=== PATIENT | female | born 1980 | race African-American/Black ===

== ENCOUNTER → 2016-09-23 | Outpatient (CLI) | payer MEDICAID ==
[2016-09-23 14:23] LABS: ABSOLUTE LYMPHOCYTES (AUTO) 1.6 10^3/uL (0.5-4.7); ABSOLUTE MONOCYTES (AUTO) 0.2 10^3/uL (0.1-1.4); ABSOLUTE NEUT (AUTO) 2.5 10^3/uL (1.7-8.2); EOSINOPHILS % (AUTO) 0.8 % (0-6); HEMATOCRIT 37.3 % (36.0-47.0); HEMOGLOBIN 12.7 g/dL (12.0-15.5); HGB HCT DIFFERENCE 0.8; LYMPHOCYTES % (AUTO) 36.1 % (13-45); MEAN CORPUSCULAR HGB CONC 33.9 g/dL (32.0-36.0); MEAN CORPUSCULAR VOLUME 83 fl (80-97); MONOCYTES % (AUTO) 5.1 % (3-13); RED BLOOD COUNT 4.53 10^6/uL (3.72-5.28); RED CELL DISTRIBUTION WIDTH 13.7 % (11.5-14.0); WHITE BLOOD COUNT 4.3 10^3/uL (4.0-10.5)
[2016-09-23 14:39] LABS: ALANINE AMINOTRANSFERASE 28 U/L (9-52); ALBUMIN 4.2 g/dL (3.5-5.0); ALKALINE PHOSPHATASE 66 U/L (38-126); ANION GAP 12 (5-19); ASPARTATE AMINO TRANSFERASE 28 U/L (14-36); BILIRUBIN,DIRECT 0.3 mg/dL (0.0-0.4); BILIRUBIN,TOTAL 0.4 mg/dL (0.2-1.3); BLOOD UREA NITROGEN 14 mg/dL (7-20); CALCIUM 9.6 mg/dL (8.4-10.2); CARBON DIOXIDE 29 mmol/L (22-30); CHLORIDE 100 mmol/L (98-107); CREATININE RESULT 0.88 mg/dL (0.52-1.25); GLUCOSE 95 mg/dL (75-110); LIPASE 261.9 U/L (23-300); POTASSIUM 4.5 mmol/L (3.6-5.0); SODIUM 141.2 mmol/L (137-145); TOTAL PROTEIN 7.6 g/dL (6.3-8.2)
[2016-09-23 14:41] LABS: CHLAM PCR NOT DETECTED (NOT DETECT)
== END ==
LOC: LAB 12:46
PROVIDERS: ATTEND Nurse Practitioner Acute Care
DX: R10.84 Generalized abdominal pain (principal)
CPT/HCPCS: 36415; 80053; 83690; 85025; 87210; 87491; 87591

== ENCOUNTER 2016-10-03 21:52 | Emergency (ER) | payer MEDICAID ==
[2016-10-04 00:37] LABS: APPEARANCE,URINE CLEAR; BILIRUBIN,URINE NEGATIVE (NEGATIVE); GLUCOSE, URINE NEGATIVE (NEGATIVE); KETONES,URINE NEGATIVE (NEGATIVE); LEUKOCYTE ESTERASE,URINE NEGATIVE (NEGATIVE); NITRITE,URINE NEGATIVE (NEGATIVE); PROTEIN,URINE NEGATIVE (NEGATIVE); UROBILINOGEN,URINE NEGATIVE mg/dL (<2.0)
[2016-10-04 06:13] VITALS: BP 167/108
--- NOTE | 2016-10-04 06:15 | ER Document Report ---
ED GI/ - General Chief Complaint: Abdominal Pain Stated Complaint: ABDOMINAL PAIN/BACK PAIN Mode of Arrival: Ambulatory Information source: Patient Notes: 36 y/o F presents to ED c/o lower pelvic/suprapubic pain. Describes pain as sharp pressure that radiates to rectum area. States pain began after intercourse tonight. Reports had similar episodes approximately 10 days ago and was seen by pcp with no significant findings. Denies fever, n/v, vaginal bleeding or discharge, dysuria, or blood in stool. TRAVEL OUTSIDE OF THE [place] IN LAST 30 DAYS: No - HPI Patient complains to provider of: Pelvic pain, Vaginal pain Onset: This evening Timing/Duration: Gradual, Persistent Quality of pain: Pressure, Sharp Severity at maximum: Moderate Severity in ED: Almost gone Pain Level: 2 Location: Pelvis, Vaginal, Rectal Vaginal bleeding (Compared to normal period): None Sexual history: Active, Condoms. denies: New partner, Rectal penetration, STD exposure Similar symptoms previously: Yes Recently seen / treated by doctor: Yes - Related Data Allergies/Adverse Reactions: No Known Allergies Allergy (Unverified 10/03/16 23:30) Past Medical History - General Information source: Patient - Social History Smoking Status: Never Smoker Chew tobacco use (# tins/day): No Frequency of alcohol use: None Drug Abuse: None Lives with: Family Family History: Reviewed & Not Pertinent Patient has suicidal ideation: No Patient has homicidal ideation: No - Medical History Medical History: Negative Renal/ Medical History: Denies: Hx Peritoneal Dialysis Past Surgical History: Reports: Hx Section - Immunizations Immunizations up to date: Yes Hx Diphtheria, Pertussis, Tetanus Vaccination: Yes Review of Systems - Review of Systems Constitutional: No symptoms reported EENT: No symptoms reported Cardiovascular: No symptoms reported Respiratory: No symptoms reported Gastrointestinal: No symptoms reported Genitourinary: No symptoms reported Female Genitourinary: See HPI Musculoskeletal: No symptoms reported Skin: No symptoms reported Hematologic/Lymphatic: No symptoms reported Neurological/Psychological: No symptoms reported -: Yes All other systems reviewed and negative Physical Exam - Vital signs Vitals: Temp Pulse Resp BP Pulse Ox 98.2 F 90 20 179/100 H 99 10/03/16 23:25 10/03/16 23:25 10/03/16 23:25 10/03/16 23:25 10/03/16 23:25 - General General appearance: Appears well, Alert In distress: None - HEENT Head: Normocephalic, Atraumatic Eyes: Normal Pupils: PERRL - Respiratory Respiratory status: No respiratory distress Chest status: Nontender Breath sounds: Normal Chest palpation: Normal - Cardiovascular Rhythm: Regular Heart sounds: Normal auscultation Murmur: No Pulses: Normal: Radial Normal capillary refill: Yes - Abdominal Inspection: Normal Distension: No distension Bowel sounds: Normal Tenderness: Nontender Organomegaly: No organomegaly - Genitourinary Notes: pt declined pelvic and rectal exam - Back Back: Normal, Nontender - Extremities General upper extremity: Normal inspection, Nontender, Normal color, Normal ROM , Normal strength, Normal temperature General lower extremity: Normal inspection, Nontender, Normal color, Normal ROM , Normal strength, Normal temperature, Normal weight bearing - Neurological Neuro grossly intact: Yes Cognition: Normal Orientation: AAOx4 Fernanda Coma Scale Eye Opening: Spontaneous [place] Coma Scale Verbal: Oriented [place] Coma Scale Motor: Obeys Commands Fernanda Coma Scale Total: 15 Speech: Normal Motor strength normal: LUE, RUE, LLE, RLE - Skin Skin Temperature: Warm Skin Moisture: Dry Skin Color: Normal Course - Re-evaluation Re-evalutation: 10/04/16 06:00 Pt hemodynamically stable, in no distress, afebrile, non-toxic, and appears well hydrated. Reviewed patient's labs including pelvic panel from 10 days ago which were unremarkable. HCG negative and UA unremarkable today. Pt declined pelvic and rectal exam today as she states had one during evaluation last week. Today's US show uterine fibroid and small right ovarian cyst. Pt presentation and findings not suggestive of emergent etiology at this time. Pt appears stable for discharge and agrees with home care, follow-up with [facility]-[employer]dn[employer] Artificer, and ED return precautions. - Vital Signs Vital signs: Temp Pulse Resp BP Pulse Ox 98.2 F 70 17 167/108 H 98 10/04/16 02:44 10/04/16 02:44 10/04/16 02:44 10/04/16 04:02 10/04/16 04:02 - Diagnostic Test Radiology reviewed: Image reviewed, Reports reviewed Discharge - Discharge Clinical Impression: Uterine fibroid Qualifiers: Uterine leiomyoma location: intramural Qualified Code(s): D25.1 - Intramural leiomyoma of uterus Ovarian cyst Qualifiers: Laterality: right Qualified Code(s): N83.201 - Unspecified ovarian cyst, right side Condition: Stable Disposition: HOME, SELF-CARE Instructions: Ovarian Cyst ([facility]), Pelvic Pain ([facility]), Anti-Inflammatory Medication ([facility]) Additional Instructions: Your ultrasound today showed Uterine fibroid and a right ovarian cyst. Follow-up with your primary care provider and Gynecolgy as discussed. Return to the Emergency Department for any worsening symptoms or concerns. Prescriptions: Naproxen [Naprosyn 375 Mg Tablet] 375 mg PO BIDP PRN #10 tablet PRN Reason: Forms: Elevated Blood Pressure Referrals: [facility] [Provider Group] - Follow up tomorrow
== END 2016-10-04 06:22 | disposition home or self-care (01) ==
LOC: ER 21:52
DX: D25.1 Intramural leiomyoma of uterus (principal); N83.201 Unspecified ovarian cyst, right side; R10.2 Pelvic and perineal pain
CPT/HCPCS: 76830; 81001; 81025; 87086; 87088; 87186; 93976; 99284

== ENCOUNTER 2017-03-31 19:30 | Emergency (ER) | payer MEDICARE, MEDICAID ==
[2017-03-31 20:16] VITALS: BP 171/101
== END 2017-03-31 23:45 | disposition left against medical advice (07) ==
LOC: ER 19:30
DX: Z53.9 Procedure and treatment not carried out, unspecified reason (principal); L02.415 Cutaneous abscess of right lower limb

== ENCOUNTER 2019-11-09 19:22 | Observation (INO) | payer MEDICARE, MEDICAID ==
--- NOTE | 2019-11-09 19:53 | ER Document Report ---
ED Medical Screen (RME) - General Chief Complaint: Blood Pressure Problem Stated Complaint: BLOOD PRESSURE ISSUES Time Seen by Provider: 11/09/19 19:52 Mode of Arrival: Ambulatory Information source: Patient Notes: 39-year-old female presented to ED for complaint of elevated blood pressure. She states she went to [facility] for reason starting her high blood pressure medicines and they told her she had to come to the emergency room because she needed a complete assessment and work-up because she has not taken her blood pressure medicines in 8 months. She states she cannot remember what she took for her blood pressure. Her blood pressure when she came to the emergency room was 181/100. She states she has no other past medical history does not smoke drink or use any drugs. She is alert oriented respirations regular nonlabored speaking in full sentences. I have greeted and performed a rapid initial assessment of this patient. A comprehensive ED assessment and evaluation of the patient, analysis of test results and completion of medical decision making process will be conducted by an additional ED providers. TRAVEL OUTSIDE OF THE [place] IN LAST 30 DAYS: No - Related Data Allergies/Adverse Reactions: No Known Allergies Allergy (Unverified 10/03/16 23:30) Past Medical History - Social History Chew tobacco use (# tins/day): No Frequency of alcohol use: None Drug Abuse: None Renal/ Medical History: Denies: Hx Peritoneal Dialysis Past Surgical History: Reports: Hx Section - Immunizations Immunizations up to date: Yes Hx Diphtheria, Pertussis, Tetanus Vaccination: Yes Physical Exam - Vital signs Vitals: Temp Pulse Resp BP Pulse Ox 98.6 F 82 16 181/100 H 97 11/09/19 19:26 11/09/19 19:26 11/09/19 19:26 11/09/19 19:26 11/09/19 19:26 Course - Vital Signs Vital signs: Temp Pulse Resp BP Pulse Ox 98.6 F 82 16 181/100 H 97 11/09/19 19:42 11/09/19 19:26 11/09/19 19:26 11/09/19 19:26 11/09/19 19:26
--- NOTE | 2019-11-09 20:50 | EKG REPORT ---
SEVERITY:- ABNORMAL ECG - SINUS RHYTHM FIRST DEGREE AV BLOCK : Confirmed by: Anup Mota MD 09-Nov-2019 20:49:25
[2019-11-09 20:56] LABS: ABSOLUTE BASOPHILS # (AUTO) 0.1 10^3/uL (0.0-0.2); ABSOLUTE EOSINOPHILS # (AUTO) 0.1 10^3/uL (0.0-0.6); ABSOLUTE LYMPHOCYTES (AUTO) 2.2 10^3/uL (0.5-4.7); ABSOLUTE MONOCYTES (AUTO) 0.3 10^3/uL (0.1-1.4); ABSOLUTE NEUT (AUTO) 2.8 10^3/uL (1.7-8.2); BASOPHILS % (AUTO) 2.5 % (0-2); EOSINOPHILS % (AUTO) 1.4 % (0-6); HEMOGLOBIN 13.4 g/dL (12.0-15.5); LYMPHOCYTES % (AUTO) 40.2 % (13-45); MEAN CORPUSCULAR HEMOGLOBIN 28.2 pg (27.0-33.4); MEAN CORPUSCULAR HGB CONC 35.2 g/dL (32.0-36.0); MEAN CORPUSCULAR VOLUME 80 fl (80-97); MONOCYTES % (AUTO) 5.1 % (3-13); PLATELET COUNT 318 10^3/uL (150-450); RED BLOOD COUNT 4.75 10^6/uL (3.72-5.28); RED CELL DISTRIBUTION WIDTH 14.6 % (11.5-14.0); SEGMENTED NEUTROPHILS % (AUTO) 50.8 % (42-78); TOTAL CELLS COUNTED % (AUTO) 100 %; WHITE BLOOD COUNT 5.5 10^3/uL (4.0-10.5)
[2019-11-09 20:59] LABS: APPEARANCE,URINE CLEAR; BILIRUBIN,URINE NEGATIVE (NEGATIVE); COLOR,URINE YELLOW; GLUCOSE, URINE NEGATIVE (NEGATIVE); KETONES,URINE NEGATIVE (NEGATIVE); PROTEIN,URINE 30 mg/dL (NEGATIVE); URINE SPECIFIC GRAVITY 1.015
--- NOTE | 2019-11-09 21:00 | ER Document Report ---
ED General - General Chief Complaint: Blood Pressure Problem Stated Complaint: BLOOD PRESSURE ISSUES Time Seen by Provider: 11/09/19 19:52 Primary Care Provider: YARIEL TURCIOS NP [Primary Care Provider] - Follow up as needed Mode of Arrival: Ambulatory Information source: Patient Notes: malissa chong 39-year-old female presented to ED for complaint of elevated blood pressure. She states she went to [facility] for reason starting her high blood pressure medicines and they told her she had to come to the emergency room because she needed a complete assessment and work-up because she has not taken her blood pressure medicines in 8 months. She states she cannot remember what she took for her blood pressure. Her blood pressure when she came to the emergency room was 181/100. She states she has no other past medical history does not smoke drink or use any drugs. She is alert oriented respirations regular nonlabored speaking in full sentences. my notes 39-year-old black female arrives with chief complaint over the last 4 days of inability to walk her usual mile walk. Indeed she can only walk around 50 feet before becoming short of breath now with dizziness and lightheadedness. She reports she has been off of her blood pressure medicine for least 8 months now and her personal doctor "advised her to come to the hospital because she may have COVID-19." Patient denies any fever chills cough hemoptysis dysuria conjunctivitis skin rash or edema of the legs. Patient does report she has been clammy. Especially when she is attempting to walk greater than 50 feet. TRAVEL OUTSIDE OF THE [place] IN LAST 30 DAYS: No - HPI Onset: This morning - Related Data Allergies/Adverse Reactions: No Known Allergies Allergy (Unverified 10/03/16 23:30) Past Medical History - General Information source: Patient - Social History Smoking Status: Never Smoker Cigarette use (# per day): No Chew tobacco use (# tins/day): No Smoking Education Provided: No Frequency of alcohol use: None Drug Abuse: None Family History: Reviewed & Not Pertinent Patient has homicidal ideation: No - Past Medical History Cardiac Medical History: Reports: Hx Hypertension Renal/ Medical History: Denies: Hx Peritoneal Dialysis Past Surgical History: Reports: Hx Section - Immunizations Immunizations up to date: Yes Hx Diphtheria, Pertussis, Tetanus Vaccination: Yes Review of Systems - Review of Systems Constitutional: See HPI, Malaise, Weakness EENT: See HPI, Other - clammy Cardiovascular: See HPI, Chest pain, Orthopnea, Dizziness, Lightheaded Respiratory: See HPI, Short of breath, Other - OJEDA Gastrointestinal: No symptoms reported Genitourinary: No symptoms reported Female Genitourinary: No symptoms reported Musculoskeletal: No symptoms reported Skin: No symptoms reported Hematologic/Lymphatic: No symptoms reported Neurological/Psychological: No symptoms reported Physical Exam - Vital signs Vitals: Temp Pulse Resp BP Pulse Ox 98.6 F 82 16 181/100 H 97 11/09/19 19:26 11/09/19 19:26 11/09/19 19:26 11/09/19 19:26 11/09/19 19:26 Interpretation: Hypertensive - General General appearance: Alert In distress: None - HEENT Head: Normocephalic, Atraumatic Eyes: Normal Pupils: PERRL Ears: Normal External canal: Normal Sinus: Normal Nasal: Normal Mouth/Lips: Normal Mucous membranes: Normal Pharynx: Normal Neck: Normal - Respiratory Respiratory status: No respiratory distress Chest status: Nontender Breath sounds: Normal Chest palpation: Normal - Cardiovascular Rhythm: Regular Heart sounds: Normal auscultation Murmur: No - Abdominal Inspection: Normal Distension: No distension Bowel sounds: Normal Tenderness: Nontender Organomegaly: No organomegaly - Genitourinary Bimanuel exam: Other - deferred - Back Back: Normal - Extremities General upper extremity: Normal inspection, Nontender, Normal color, Normal ROM, Normal temperature General lower extremity: Normal inspection, Nontender, Normal color, Normal ROM, Normal temperature, Normal weight bearing. No: Christopher's sign - Neurological Neuro grossly intact: Yes Cognition: Normal Orientation: AAOx4 Fernanda Coma Scale Eye Opening: Spontaneous [place] Coma Scale Verbal: Oriented Fernanda Coma Scale Motor: Obeys Commands [place] Coma Scale Total: 15 Speech: Normal Motor strength normal: LUE, RUE, LLE, RLE Sensory: Normal - Psychological Associated symptoms: Anxious - Skin Skin Temperature: Warm Skin Moisture: Dry Course - Vital Signs Vital signs: Temp Pulse Resp BP Pulse Ox 98.6 F 82 20 167/109 H 99 11/09/19 19:42 11/09/19 19:26 11/10/19 00:33 11/10/19 00:33 11/10/19 00:33 - Laboratory Result Diagrams: 11/09/19 20:36 11/09/19 20:36 Laboratory results interpreted by me: 11/09/19 11/09/19 11/09/19 20:30 20:36 20:36 RDW 14.6 H Baso % (Auto) 2.5 H AST 41 H Total Protein 8.6 H Urine Protein 30 H Urine Urobilinogen 4.0 H - Diagnostic Test Radiology reviewed: Reports reviewed - EKG Interpretation by Me EKG shows normal: Sinus rhythm Rate: Normal Rhythm: NSR Critical Care Note - Critical Care Note Total time excluding time spent on procedures (mins): 90 Comments: I discussed this case at 2314 with Stefano Jennings plate colorer and he advised labetalol 10 and hydralazine if that does not lower her blood pressure. By 2315 I also discussed this case with Dr. Lopez who would evaluate this patient tomorrow morning if the patient is admitted. I spoke with Kae at 2320 and advised that patient will receive labetalol IV and hold nicardipine drip for now. I spoke with Stefano at 00 37 with a blood pressure of 167/109 and he advises hydralazine with nitro drip. Patient continues to have substernal chest pain 5- 6/10. Please note by 0 140 patient had a 144/82 blood pressure on 5 mics of nitroglycerin drip but continued to have chest pain. I again spoke with Stefano about this patient at 0140. I discussed this case with Dr. Mike Sood and he advises telemetry bed Discharge - Discharge Clinical Impression: Chest pain at rest, Chest pain due to CAD Hypertension Qualifiers: Hypertension type: unspecified Qualified Code(s): I10 - Essential (primary) h ypertension Condition: Good Disposition: ADMITTED INPATIENT Admitting Provider: stefano jennings Unit Admitted: Telemetry Forms: Elevated Blood Pressure Referrals: YAREIL TURCIOS NP [Primary Care Provider] - Follow up as needed
[2019-11-09 21:14] LABS: ALBUMIN 4.7 g/dL (3.5-5.0); ALKALINE PHOSPHATASE 72 U/L (38-126); ANION GAP 8 (5-19); ASPARTATE AMINO TRANSFERASE 41 U/L (14-36); BILIRUBIN,DIRECT 0.1 mg/dL (0.0-0.4); BILIRUBIN,TOTAL 0.5 mg/dL (0.2-1.3); BLOOD UREA NITROGEN 12 mg/dL (7-20); CALCIUM 9.3 mg/dL (8.4-10.2); CARBON DIOXIDE 30 mmol/L (22-30); CHLORIDE 101 mmol/L (98-107); GLUCOSE 94 mg/dL (75-110); TOTAL PROTEIN 8.6 g/dL (6.3-8.2)
[2019-11-09] MEDS ORDERED: DILTIAZEM HCL INJ 25 MG/5 ML VIAL IV ONE (21:52)
[2019-11-09] MEDS ORDERED: NICARDIPINE HCL RTU, ISO-OS 20 MG/200 ML RTUINJ IV PRN (23:06)
[2019-11-09] MEDS ORDERED: LABETALOL HCL INJ 20 MG/4 ML DISP.SYRIN IV ONE (23:14)
--- NOTE | 2019-11-09 23:25 | RADIOLOGY REPORT (SQ) ---
EXAM DESCRIPTION: XR CHEST 1 VIEW COMPLETED DATE/TME: 11/09/2019 21:04 CLINICAL HISTORY: 39 years, Female, sob COMPARISON: None. NUMBER OF VIEWS: TECHNIQUE: LIMITATIONS: None. FINDINGS: No evidence of pulmonary infiltrate or pleural effusion. The heart and mediastinum are unremarkable. Pulmonary vascularity appears normal. IMPRESSION: Normal chest x-ray. copyright 2010 [employer]- All Rights Reserved
[2019-11-10] MEDS ORDERED: HYDRALAZINE HCL INJ/PF 20 MG/1 ML SDV IV ONE (00:43)
[2019-11-10] MEDS ORDERED: NITROGLYCERIN/D5W 50 MG/250 ML RTUINJ IV PRN (00:44)
[2019-11-10] MEDS ORDERED: ASPIRIN 81 MG TABLET, CHEWABLE PO ONE (01:09)
[2019-11-10] MEDS ORDERED: METOCLOPRAMIDE HCL ORAL SOLN 10 MG/10 ML UDCUP PO ONE (01:44)
[2019-11-10] MEDS ORDERED: MAG HYDROX/AL HYDROX/SIMETH SUSP 30 ML UDCUP PO ONE (01:44)
[2019-11-10] MEDS ORDERED: LIDOCAINE 2% VISCOUS SOLN 15 ML UDCUP PO ONE (01:44)
[2019-11-10] MEDS ORDERED: HYDRALAZINE HCL INJ/PF 20 MG/1 ML SDV IV PRN (01:54)
[2019-11-10] MEDS ORDERED: ACETAMINOPHEN 325 MG TABLET PO PRN (01:55)
[2019-11-10] MEDS ORDERED: NITROGLYCERIN 0.4 MG/TAB 25 TAB/BOTTLE SL PRN (01:55)
[2019-11-10] MEDS: FAMOTIDINE 20 MG TABLET PO SCH ×4 (02:50→18:07)
[2019-11-10] MEDS ORDERED: AMLODIPINE BESYLATE 10 MG TABLET PO ONE ×2 (03:00→14:00)
[2019-11-10 03:27] LABS: URINE AMPHETAMINES SCREEN NEGATIVE; URINE BARBITURATES SCREEN NEGATIVE; URINE BENZODIAZEPINES SCREEN NEGATIVE; URINE COCAINE SCREEN NEGATIVE; URINE MARIJUANA (THC) SCREEN NEGATIVE; URINE METHADONE SCREEN NEGATIVE; URINE PHENCYCLIDINE SCREEN NEGATIVE
[2019-11-10] MEDS ORDERED: LORAZEPAM INJ 2 MG/1 ML VIAL IV ONE (05:00)
--- NOTE | 2019-11-10 05:55 | PDOC H&P ---
History of Present Illness Admission Date/PCP: 11/10/19 02:06 YARIEL TURCIOS NP Patient complains of: Chest pain shortness of breath History of Present Illness: AJ JOSEPH is a 39 year old female with a past medical history of hypertension and morbid obesity who presents with 4 days of intermittent shortness of breath with exertion and some dull 2 out of 5 nonradiating, intermittent chest pain relieved with rest. In the emergency room she presents with systolic blood pressure in the 190s but an otherwise unremarkable work-up including normal troponin, TSH, BNP, EKG and chest x-ray. She is referred to the hospitalist for admission. On exam she is anxious unable to identify stressor. Cardene and IV nitro are discontinued and she receives Ativan 1 mg x 1 resulting in a systolic blood pressure of 130 and resolution of symptoms. She admits to abrupt discontinuation of antihypertensive medication 6 months ago. Past Medical History Cardiac Medical History: Reports: Hypertension Psychiatric Medical History: Denies: Depression Past Surgical History Past Surgical History: Reports: Section Social History Information Source: Patient Lives with: Spouse/Significant other Smoking Status: Unknown if Ever Smoked Electronic Cigarette use?: No Frequency of Alcohol Use: Rare Drugs: None Hx Prescription Drug Abuse: No - Advance Directive Resuscitation Status: Full Code Family History Family History: Malignancy - Father unknown origin Parental Family History Reviewed: Yes Children Family History Reviewed: Yes Sibling(s) Family History Reviewed.: Yes Medication/Allergy Home Medications: Naproxen [Naprosyn 375 Mg Tablet] 375 mg PO BIDP PRN #10 tablet 10/04/16 Allergies/Adverse Reactions: No Known Allergies Allergy (Unverified 10/03/16 23:30) Review of Systems Constitutional: ABSENT: chills, fever(s), headache(s), weight gain, weight loss Eyes: ABSENT: visual disturbances Ears: ABSENT: hearing changes Cardiovascular: ABSENT: chest pain, dyspnea on exertion, edema, orthropnea, palpitations Respiratory: ABSENT: cough, hemoptysis Gastrointestinal: ABSENT: abdominal pain, constipation, diarrhea, hematemesis, hematochezia, nausea, vomiting Genitourinary: ABSENT: dysuria, hematuria Musculoskeletal: ABSENT: joint swelling Integumentary: ABSENT: rash, wounds Neurological: ABSENT: abnormal gait, abnormal speech, confusion, dizziness, focal weakness, syncope Psychiatric: ABSENT: anxiety, depression, homidical ideation, suicidal ideation Endocrine: ABSENT: cold intolerance, heat intolerance, polydipsia, polyuria Hematologic/Lymphatic: ABSENT: easy bleeding, easy bruising Physical Exam Vital Signs: Temp Pulse Resp BP Pulse Ox 98.1 F 89 17 170/79 H 99 11/10/19 03:09 11/10/19 03:28 11/10/19 03:09 11/10/19 04:00 11/10/19 03:09 Intake & Output 11/08/19 11/09/19 11/10/19 11:59 11:59 11:59 Intake Total 1 Balance 1 Weight 114 kg General appearance: PRESENT: cooperative, morbidly obese, well-developed, well- nourished Head exam: PRESENT: atraumatic, normocephalic Eye exam: PRESENT: conjunctiva pink, EOMI, PERRLA. ABSENT: scleral icterus Ear exam: PRESENT: normal external ear exam Mouth exam: PRESENT: moist, tongue midline Neck exam: ABSENT: carotid bruit, JVD, lymphadenopathy, thyromegaly Respiratory exam: PRESENT: clear to auscultation aneudy. ABSENT: rales, rhonchi, wheezes Cardiovascular exam: PRESENT: RRR. ABSENT: diastolic murmur, rubs, systolic murmur Pulses: PRESENT: normal dorsalis pedis pul Vascular exam: PRESENT: normal capillary refill GI/Abdominal exam: PRESENT: normal bowel sounds, soft. ABSENT: distended, guarding, mass, organolmegaly, rebound, tenderness Rectal exam: PRESENT: deferred Extremities exam: PRESENT: full ROM. ABSENT: calf tenderness, clubbing, pedal edema Neurological exam: PRESENT: alert, awake, oriented to person, oriented to place, oriented to time, oriented to situation, CN II-XII grossly intact. ABSENT: motor sensory deficit Psychiatric exam: PRESENT: appropriate affect, normal mood. ABSENT: homicidal ideation, suicidal ideation Skin exam: PRESENT: dry, intact, warm. ABSENT: cyanosis, rash Results Laboratory Results: 11/09/19 20:36 11/09/19 20:36 11/09/19 11/09/19 11/09/19 20:30 20:36 20:36 WBC 5.5 RBC 4.75 Hgb 13.4 Hct 38.0 MCV 80 MCH 28.2 MCHC 35.2 RDW 14.6 H Plt Count 318 Seg Neutrophils % 50.8 Sodium 138.8 Potassium 4.0 Chloride 101 Carbon Dioxide 30 Anion Gap 8 BUN 12 Creatinine 0.95 Est GFR ( Amer) > 60 Glucose 94 Calcium 9.3 Total Bilirubin 0.5 AST 41 H Alkaline Phosphatase 72 Total Protein 8.6 H Albumin 4.7 TSH Serum HCG, Qual Urine Color YELLOW Urine Appearance CLEAR Urine pH 6.0 Ur Specific [place] 1.015 Urine Protein 30 H Urine Glucose (UA) NEGATIVE Urine Ketones NEGATIVE Urine Blood NEGATIVE 11/09/19 11/09/19 20:36 20:36 WBC RBC Hgb Hct MCV MCH MCHC RDW Plt Count Seg Neutrophils % Sodium Potassium Chloride Carbon Dioxide Anion Gap BUN Creatinine Est GFR ( Amer) Glucose Calcium Total Bilirubin AST Alkaline Phosphatase Total Protein Albumin TSH 3.68 Serum HCG, Qual NEGATIVE Urine Color Urine Appearance Urine pH Ur Specific [place] Urine Protein Urine Glucose (UA) Urine Ketones Urine Blood 11/09/19 11/09/19 11/10/19 20:36 20:36 02:48 Troponin I < 0.012 < 0.012 NT-Pro-B Natriuret Pep 58 Impressions: Chest X-Ray 11/09/19 21:04 IMPRESSION: Normal chest x-ray. copyright 2010 [employer]- All Rights Reserved Assessment and Plan - Diagnosis (1) Hypertensive urgency Is this a current diagnosis for this admission?: Yes Plan: Multifactorial secondary to underlying essential hypertension and uncontrolled anxiety, nicardipine, nitroglycerin discontinued in the emergency department followed by a return of the systolic blood pressure in the 190s followed by 1 mg of Ativan IV and a systolic blood pressure of 130 and resolution of symptoms. Will continue Norvasc 10 mg daily suggest trial trazodone 25 nightly (2) Morbid obesity Is this a current diagnosis for this admission?: Yes Plan: Morbid obesity will evaluate for metabolic cause with evaluation of thyroid function and dietitian consultation (3) Anxiety Is this a current diagnosis for this admission?: Yes Plan: Follow-up TSH, trial trazodone (4) Chest pain at rest Is this a current diagnosis for this admission?: Yes Plan: Recent unremarkable stress test per patient 1 year ago. Chief complaint of [facility] [facility] pain likely secondary to uncontrolled hypertension, consider outpatient stress test. - Time Time Spent with patient: 15-24 minutes - Inpatient Certification Medical Necessity: Need Close Monitoring Due to Risk of Patient Decompensation
[2019-11-10] MEDS: ASPIRIN 81 MG TABLET, ENT COATED PO SCH ×2 (09:39→11:35)
[2019-11-10] MEDS: AMLODIPINE BESYLATE 10 MG TABLET PO SCH ×2 (09:39→11:36)
[2019-11-10] MEDS: HYDROCHLOROTHIAZIDE 25 MG TABLET PO SCH (13:26)
--- NOTE | 2019-11-10 14:44 | PDOC PROGRESS REPORT ---
Subjective Progress Note for:: 11/10/19 Subjective:: Patient was seen on afternoon rounds. She is walking up to the recliner, comfortably, on room air. She reports a headache today but otherwise has no complaints. She states that she has had no further episodes of chest discomfort. She specifically denies palpitations, dyspnea, orthopnea, and peripheral edema. She has many questions regarding why she is continuing to be offered oral antihypertensives now that her blood pressure has "improved." Discussed in detail with patient. Reason For Visit: HTN URGENCY CP Physical Exam Vital Signs: Temp Pulse Resp BP Pulse Ox 98.1 F 96 18 148/87 H 97 11/10/19 10:48 11/10/19 10:48 11/10/19 10:48 11/10/19 10:48 11/10/19 10:48 Intake & Output 11/09/19 11/10/19 11/11/19 06:59 06:59 06:59 Intake Total 1 0 Balance 1 0 Weight 114 kg General appearance: PRESENT: no acute distress, obese, well-developed, well- nourished Head exam: PRESENT: atraumatic, normocephalic Eye exam: PRESENT: conjunctiva pink, EOMI, PERRLA. ABSENT: scleral icterus Mouth exam: PRESENT: moist, tongue midline Respiratory exam: PRESENT: clear to auscultation aneudy. ABSENT: rales, rhonchi, wheezes Cardiovascular exam: PRESENT: RRR, tachycardia - HR <115 at rest. ABSENT: diastolic murmur, rubs, systolic murmur Pulses: PRESENT: normal dorsalis pedis pul Vascular exam: PRESENT: normal capillary refill GI/Abdominal exam: PRESENT: normal bowel sounds, soft. ABSENT: distended, guarding, mass, organolmegaly, rebound, tenderness Rectal exam: PRESENT: deferred Extremities exam: PRESENT: full ROM. ABSENT: calf tenderness, clubbing, pedal edema Musculoskeletal exam: PRESENT: ambulatory Neurological exam: PRESENT: alert, awake, oriented to person, oriented to place, oriented to time, oriented to situation, CN II-XII grossly intact. ABSENT: motor sensory deficit Psychiatric exam: PRESENT: anxious, normal mood. ABSENT: homicidal ideation, suicidal ideation Skin exam: PRESENT: dry, intact, warm. ABSENT: cyanosis, rash Results Laboratory Results: 11/09/19 20:36 11/09/19 20:36 11/09/19 11/09/19 11/09/19 20:30 20:36 20:36 WBC 5.5 RBC 4.75 Hgb 13.4 Hct 38.0 MCV 80 MCH 28.2 MCHC 35.2 RDW 14.6 H Plt Count 318 Seg Neutrophils % 50.8 Sodium 138.8 Potassium 4.0 Chloride 101 Carbon Dioxide 30 Anion Gap 8 BUN 12 Creatinine 0.95 Est GFR ( Amer) > 60 Glucose 94 Calcium 9.3 Total Bilirubin 0.5 AST 41 H Alkaline Phosphatase 72 Total Protein 8.6 H Albumin 4.7 TSH Serum HCG, Qual Urine Color YELLOW Urine Appearance CLEAR Urine pH 6.0 Ur Specific [place] 1.015 Urine Protein 30 H Urine Glucose (UA) NEGATIVE Urine Ketones NEGATIVE Urine Blood NEGATIVE 11/09/19 11/09/19 20:36 20:36 WBC RBC Hgb Hct MCV MCH MCHC RDW Plt Count Seg Neutrophils % Sodium Potassium Chloride Carbon Dioxide Anion Gap BUN Creatinine Est GFR ( Amer) Glucose Calcium Total Bilirubin AST Alkaline Phosphatase Total Protein Albumin TSH 3.68 Serum HCG, Qual NEGATIVE Urine Color Urine Appearance Urine pH Ur Specific [place] Urine Protein Urine Glucose (UA) Urine Ketones Urine Blood 11/09/19 11/09/19 11/10/19 20:36 20:36 02:48 Troponin I < 0.012 < 0.012 NT-Pro-B Natriuret Pep 58 11/10/19 08:20 Troponin I < 0.012 NT-Pro-B Natriuret Pep Impressions: Chest X-Ray 11/09/19 21:04 IMPRESSION: Normal chest x-ray. copyright 2010 [email or web address] All Rights Reserved Assessment and Plan - Diagnosis (1) Hypertensive urgency Is this a current diagnosis for this admission?: Yes Plan: Improved; though did require prn IV hydralazine Multifactorial secondary to underlying essential hypertension and uncontrolled anxiety, Will continue Norvasc 10 mg daily Will resume HCTZ; patient reports previously did well with this medication. Suggest trial trazodone 25 nightly and BuSpar twice daily. Cardiac diet. (2) Anxiety Is this a current diagnosis for this admission?: Yes Plan: TSH nml UDS negative Remains anxious today; highly resistant to new medications. Would avoid benzos. Consider betablocker for dual effect (blood pressure and anxiety/agitation) Will offer BuSpar though doubt patient will be willing to attempt. (3) Chest pain at rest Is this a current diagnosis for this admission?: Yes Plan: Resolved. Recent unremarkable stress test per patient 1 year ago. Chief complaint of chest pain likely secondary to uncontrolled hypertension, consider outpatient stress test. Troponins negative x 3 Sinus tach by telemetry; no concerning findings. (4) Morbid obesity Is this a current diagnosis for this admission?: Yes Plan: BMI 39.4 TSH is nml Dietary discretion and lifestyle modification are encouraged. - Time Time Spent with patient: 15-24 minutes Medications reviewed and adjusted accordingly: Yes Anticipated discharge: Home Within: within 24 hours
[2019-11-10] MEDS: BUSPIRONE HCL 10 MG TABLET PO SCH (21:42)
[2019-11-10] MEDS ORDERED: TRAZODONE HCL 50 MG TABLET PO SCH (22:00)
[2019-11-10] MEDS ORDERED: ATORVASTATIN CALCIUM 40 MG TABLET PO SCH (22:00)
[2019-11-11 08:42] VITALS: BP 170/79
[2019-11-11] MEDS: AMLODIPINE BESYLATE 10 MG TABLET PO SCH (09:22)
[2019-11-11] MEDS: HYDROCHLOROTHIAZIDE 25 MG TABLET PO SCH (09:22)
[2019-11-11] MEDS: FAMOTIDINE 20 MG TABLET PO SCH (09:22)
[2019-11-11] MEDS: BUSPIRONE HCL 10 MG TABLET PO SCH (09:22)
[2019-11-11] MEDS: ASPIRIN 81 MG TABLET, ENT COATED PO SCH (09:22)
[2019-11-11] MEDS ORDERED: METOPROLOL SUCCINATE 25 MG TAB.SR.24H PO SCH (10:00)
--- NOTE | 2019-11-11 12:31 | PDOC DISCHARGE SUMMARY ---
Impression - Admit/DC Date/PCP Admission Date/Primary Care Provider: 11/10/19 02:06 YARIEL TURCIOS NP Discharge Date: 11/11/19 - Discharge Diagnosis (1) Hypertensive urgency Is this a current diagnosis for this admission?: Yes (2) Anxiety Is this a current diagnosis for this admission?: Yes (3) Chest pain at rest Is this a current diagnosis for this admission?: Yes (4) Morbid obesity Is this a current diagnosis for this admission?: Yes - Additional Information Resuscitation Status: Full Code Discharge Diet: Cardiac Discharge Activity: Activity As Tolerated Referrals: YARIEL TURCIOS NP [Primary Care Provider] - 11/15/19 3:15 pm Prescriptions: Buspirone HCl [Buspar 10 mg Tablet] 10 mg PO Q12 #60 tablet Trazodone HCl [Desyrel 50 mg Tablet] 25 mg PO QHS #30 tablet Hydrochlorothiazide [Hydrodiuril 25 mg Tablet] 25 mg PO DAILY #30 tablet Amlodipine Besylate [Norvasc 10 mg Tablet] 10 mg PO DAILY #30 tablet Metoprolol Succinate [Toprol Xl 25 mg Tab.sr] 25 mg PO QHS #30 tab.sr.24h Home Medications: Acetaminophen [Tylenol 325 mg Tablet] 650 mg PO Q4HP PRN tablet 11/11/19 Amlodipine Besylate [Norvasc 10 mg Tablet] 10 mg PO DAILY #30 tablet 11/11/19 Aspirin [Ecotrin 81 mg EC Tablet] 81 mg PO DAILY tabec 11/11/19 Buspirone HCl [Buspar 10 mg Tablet] 10 mg PO Q12 #60 tablet 11/11/19 Hydrochlorothiazide [Hydrodiuril 25 mg Tablet] 25 mg PO DAILY #30 tablet 11/11/19 Metoprolol Succinate [Toprol Xl 25 mg Tab.sr] 25 mg PO QHS #30 tab.sr.24h 11/11/19 Trazodone HCl [Desyrel 50 mg Tablet] 25 mg PO QHS #30 tablet 11/11/19 History of Present Illiness History of Present Illness: Per H&P by Dr. Sood: AJ JOSEPH is a 39 year old female with a past medical history of hypertension and morbid obesity who presents with 4 days of intermittent shortness of breath with exertion and some dull 2 out of 5 nonradiating, intermittent chest pain relieved with rest. In the emergency room she presents with systolic blood pressure in the 190s but an otherwise unremarkable work-up including normal troponin, TSH, BNP, EKG and chest x-ray. She is referred to the hospitalist for admission. On exam she is anxious unable to identify stressor. Cardene and IV nitro are discontinued and she receives Ativan 1 mg x 1 resulting in a systolic blood pressure of 130 and resolution of symptoms. She admits to abrupt discontinuation of antihypertensive medication 6 months ago. Hospital Course Hospital Course: (1) Hypertensive urgency Significantly improved. Multifactorial secondary to underlying essential hypertension and uncontrolled anxiety, Have resumed her previously prescribed doses of Norvasc 10 mg daily and HCTZ 25 mg daily. Started on Toprol XL 25 mg qHS Cardiac diet. (2) Anxiety TSH nml UDS negative Remains anxious today; highly resistant to new medications. Have started betablocker for dual effect (blood pressure and anxiety/agitation) D/c on BuSpar and Trazadone. Discussed medications in detail with patient. (3) Chest pain at rest Resolved. Recent unremarkable stress test per patient 1 year ago. Chief complaint of chest pain likely secondary to uncontrolled hypertension, consider outpatient stress test. Troponins negative x 3 (4) Morbid obesity BMI 39.4 TSH is nml Dietary discretion and lifestyle modification are encouraged. Physical Exam Vital Signs: Temp Pulse Resp BP Pulse Ox 98.1 F 88 18 170/79 H 98 11/11/19 08:41 11/11/19 08:41 11/11/19 08:41 11/11/19 08:41 11/11/19 08:41 Intake & Output 11/10/19 11/11/19 11/12/19 06:59 06:59 06:59 Intake Total 1 350 Balance 1 350 Weight 114 kg 97.3 kg General appearance: PRESENT: no acute distress, cooperative, obese, well- developed, well-nourished Head exam: PRESENT: atraumatic, normocephalic Eye exam: PRESENT: conjunctiva pink, EOMI, PERRLA. ABSENT: scleral icterus Mouth exam: PRESENT: moist, tongue midline Respiratory exam: PRESENT: clear to auscultation aneudy. ABSENT: rales, rhonchi, wheezes Cardiovascular exam: PRESENT: RRR. ABSENT: diastolic murmur, rubs, systolic murmur Pulses: PRESENT: normal dorsalis pedis pul Vascular exam: PRESENT: normal capillary refill GI/Abdominal exam: PRESENT: normal bowel sounds, soft. ABSENT: distended, guarding, mass, organolmegaly, rebound, tenderness Rectal exam: PRESENT: deferred Extremities exam: PRESENT: full ROM. ABSENT: calf tenderness, clubbing, pedal edema Musculoskeletal exam: PRESENT: ambulatory Neurological exam: PRESENT: alert, awake, oriented to person, oriented to place, oriented to time, oriented to situation, CN II-XII grossly intact. ABSENT: motor sensory deficit Psychiatric exam: PRESENT: appropriate affect, normal mood. ABSENT: homicidal ideation, suicidal ideation Skin exam: PRESENT: dry, intact, warm. ABSENT: cyanosis, rash Results Laboratory Results: WBC 5.5 10^3/uL (4.0-10.5) 11/09/19 20:36 RBC 4.75 10^6/uL (3.72-5.28) 11/09/19 20:36 Hgb 13.4 g/dL (12.0-15.5) 11/09/19 20:36 Hct 38.0 % (36.0-47.0) 11/09/19 20:36 MCV 80 fl (80-97) 11/09/19 20:36 MCH 28.2 pg (27.0-33.4) 11/09/19 20:36 MCHC 35.2 g/dL (32.0-36.0) 11/09/19 20:36 RDW 14.6 % (11.5-14.0) H 11/09/19 20:36 Plt Count 318 10^3/uL (150-450) 11/09/19 20:36 Lymph % (Auto) 40.2 % (13-45) 11/09/19 20:36 [place]ance % (Auto) 5.1 % (3-13) 11/09/19 20:36 Eos % (Auto) 1.4 % (0-6) 11/09/19 20:36 Baso % (Auto) 2.5 % (0-2) H 11/09/19 20:36 Absolute Neuts (auto) 2.8 10^3/uL (1.7-8.2) 11/09/19 20:36 Absolute Lymphs (auto) 2.2 10^3/uL (0.5-4.7) 11/09/19 20:36 Absolute Monos (auto) 0.3 10^3/uL (0.1-1.4) 11/09/19 20:36 Absolute Eos (auto) 0.1 10^3/uL (0.0-0.6) 11/09/19 20:36 Absolute Basos (auto) 0.1 10^3/uL (0.0-0.2) 11/09/19 20:36 Seg Neutrophils % 50.8 % (42-78) 11/09/19 20:36 Sodium 138.8 mmol/L (137-145) 11/09/19 20:36 Potassium 4.0 mmol/L (3.6-5.0) 11/09/19 20:36 Chloride 101 mmol/L (98-107) 11/09/19 20:36 Carbon Dioxide 30 mmol/L (22-30) 11/09/19 20:36 Anion Gap 8 (5-19) 11/09/19 20:36 BUN 12 mg/dL (7-20) 11/09/19 20:36 Creatinine 0.95 mg/dL (0.52-1.25) 11/09/19 20:36 Est GFR ( Amer) > 60 (>60) 11/09/19 20:36 Est GFR (MDRD) Non-Af > 60 (>60) 11/09/19 20:36 Glucose 94 mg/dL (75-110) 11/09/19 20:36 Calcium 9.3 mg/dL (8.4-10.2) 11/09/19 20:36 Total Bilirubin 0.5 mg/dL (0.2-1.3) 11/09/19 20:36 Direct Bilirubin 0.1 mg/dL (0.0-0.4) 11/09/19 20:36 Neonat Total Bilirubin Not Reportable 11/09/19 20:36 Neonat Direct Bilirubin Not Reportable 11/09/19 20:36 Neonat Indirect Bili Not Reportable 11/09/19 20:36 AST 41 U/L (14-36) H 11/09/19 20:36 ALT 25 U/L (<35) 11/09/19 20:36 Alkaline Phosphatase 72 U/L (38-126) 11/09/19 20:36 Troponin I < 0.012 ng/mL 11/10/19 08:20 NT-Pro-B Natriuret Pep 58 pg/mL (<125) 11/09/19 20:36 Total Protein 8.6 g/dL (6.3-8.2) H 11/09/19 20:36 Albumin 4.7 g/dL (3.5-5.0) 11/09/19 20:36 TSH 3.68 uIU/mL (0.47-4.68) 11/09/19 20:36 Serum HCG, Qual NEGATIVE (NEGATIVE) 11/09/19 20:36 Urine Color YELLOW 11/09/19 20:30 Urine Appearance CLEAR 11/09/19 20:30 Urine pH 6.0 (5.0-9.0) 11/09/19 20:30 Ur Specific [place] 1.015 11/09/19 20:30 Urine Protein 30 mg/dL (NEGATIVE) H 11/09/19 20:30 Urine Glucose (UA) NEGATIVE mg/dL (NEGATIVE) 11/09/19 20:30 Urine Ketones NEGATIVE mg/dL (NEGATIVE) 11/09/19 20:30 Urine Blood NEGATIVE (NEGATIVE) 11/09/19 20:30 Urine Nitrite (Reflex) NEGATIVE (NEGATIVE) 11/09/19 20:30 Urine Bilirubin NEGATIVE (NEGATIVE) 11/09/19 20:30 Urine Urobilinogen 4.0 mg/dL (<2.0) H 11/09/19 20:30 Leukocyte Esterase Rfl NEGATIVE (NEGATIVE) 11/09/19 20:30 Urine Bacteria (Auto) TRACE /HPF 11/09/19 20:30 Urine WBC (Reflex) < 1 /HPF 11/09/19 20:30 Squamous Epi Cells Auto 1 /HPF 11/09/19 20:30 Urine Mucus (Auto) RARE /LPF 11/09/19 20:30 Urine Ascorbic Acid NEGATIVE (NEGATIVE) 11/09/19 20:30 Urine Opiates Screen NEGATIVE 11/09/19 20:30 Urine Methadone Screen NEGATIVE 11/09/19 20:30 Ur Barbiturates Screen NEGATIVE 11/09/19 20:30 Ur Phencyclidine Scrn NEGATIVE 11/09/19 20:30 Ur Amphetamines Screen NEGATIVE 11/09/19 20:30 U Benzodiazepines Scrn NEGATIVE 11/09/19 20:30 Urine Cocaine Screen NEGATIVE 11/09/19 20:30 U Marijuana (THC) Screen NEGATIVE 11/09/19 20:30 Monotest NEGATIVE (NEGATIVE) 11/09/19 20:36 Group A Strep Rapid NEGATIVE (NEGATIVE) 11/09/19 21:22 11/09/19 11/09/19 11/10/19 20:36 20:36 02:48 Troponin I < 0.012 < 0.012 NT-Pro-B Natriuret Pep 58 11/10/19 08:20 Troponin I < 0.012 NT-Pro-B Natriuret Pep Impressions: Chest X-Ray 11/09/19 21:04 IMPRESSION: Normal chest x-ray. copyright 2010 [employer]- All Rights Reserved Plan Plan of Treatment: Follow-up with your primary care provider within 1 week. Take your medication as prescribed. Eat a heart healthy diet. Do NOT smoke. Return to emergency department as needed for concerning symptoms. Time Spent: Greater than 30 Minutes Stroke Is this a Stroke Patient?: No Acute Heart Failure - Is this a Heart Failure Patient?: No
== END 2019-11-11 09:47 | disposition home or self-care (01) ==
LOC: ER 19:22 → EH 11-10 02:06 → INTOOBSV 11-10 02:06 → 4S 11-10 03:20
PROVIDERS: ADMIT Internal Medicine; ATTEND Registered Nurse
DX: I16.0 Hypertensive urgency (principal); F41.9 Anxiety disorder, unspecified; R07.89 Other chest pain; E66.01 Morbid (severe) obesity due to excess calories; Z68.39 Body mass index [BMI] 39.0-39.9, adult; Z91.14 Patient's other noncompliance with medication regimen
CPT/HCPCS: 93005; 99291; 99292; 96375; 96365; 36415 ×2; 87070; 87880; 84443; 84703; 85025; 86308; 80053; 81001; 84484 ×2; 80307; 83880; 71045; 93010; A9270 ×14; J0360; J3490 ×5; J2060; G0378